=== PATIENT | female | born 1950 ===

== ENCOUNTER 2021-05-05 10:51 | Emergency (ER) | payer MEDICARE ==
[~2021-05-05] VITALS: Ht 175.3 cm; Wt 81.6 kg
--- NOTE | 2021-05-05 11:04 | NUR ---
Call placed to [facility] for per request.
[2021-05-05 11:38] LABS: HEMATOCRIT 49.3 % (31.2-41.9); MEAN CORPUSCULAR VOLUME 93.1 fL (75.5-95.3); PLATELET COUNT (AUTO) 165 K/uL (179-408)
[2021-05-05 11:46] LABS: CREATININE 0.6 mg/dL (0.6-1.3); POTASSIUM 3.5 mmol/L (3.5-5.1)
[2021-05-05 11:52] LABS: BILIRUBIN,DIRECT 0.2 mg/dL (0.0-0.2); BILIRUBIN,TOTAL 0.7 mg/dL (0.2-1.0); TOTAL PROTEIN, SERUM 6.3 g/dL (6.4-8.2)
[2021-05-05 11:54] LABS: *BILIRUBIN,URIN NEGATIVE (NEGATIVE); *CLARITY,URINE CLEAR (CLEAR); *COLOR,URINE YELLOW (YELLOW); *KETONES,URINE NEGATIVE (NEGATIVE); LEUKOCYTE ESTERASE ,URINE 1+ (NEGATIVE); NITRITE, URINE NEGATIVE (NEGATIVE); PH,URINE 5.5 (5.0-8.0); UGLUCOSE NEGATIVE (NEGATIVE)
[2021-05-05] MEDS ORDERED: ONDANSETRON 4 MG/2 ML VIAL IV PRN (12:00)
[2021-05-05] MEDS ORDERED: MAGNESIUM HYDROXIDE 30 ML LIQUID UDC PO PRN (12:00)
[2021-05-05] MEDS ORDERED: ACETAMINOPHEN 325 MG TABLET PO PRN (12:00)
[2021-05-05] MEDS ORDERED: IV D5 1/2 NS 1000 ML 1,000 ML IV PRN (12:00)
--- NOTE | 2021-05-05 12:00 | NUR ---
Patient returned from CT Scan.
[2021-05-05] MEDS ORDERED: IV NORMAL SALINE 500 ML BAG IV ONE ×2 (12:15→15:15)
[2021-05-05 12:19] LABS: *BLOOD, URINE TRACE (NEGATIVE)
[2021-05-05] MEDS ORDERED: APIX5TAB PO (12:24)
[2021-05-05] MEDS ORDERED: ACET-2154 PO (12:24)
[2021-05-05] MEDS ORDERED: MIRT-121 PO (12:24)
[2021-05-05] MEDS ORDERED: LEVE500T9 PO (12:24)
[2021-05-05 14:27] LABS: BACTERIA,URINE FEW /HPF (NONE SEEN); RBC,URINE 0-3 /HPF (0-3); SQUAMOUS EPITHELIAL CELL,UR FEW /HPF (NONE SEEN); URINE AMORPHOUS URATE MANY /HPF
--- NOTE | 2021-05-05 14:50 | NUR ---
Patient is resting comfortably in bed, no acute distress noted.
[2021-05-05] MEDS ORDERED: DEXAMETHASONE SOD PHOSPHATE 4 MG INJ IV ONE (15:00)
[2021-05-05] MEDS ORDERED: DEXAMETHASONE SOD PHOSPHATE 4 MG INJ ONE (15:14)
--- NOTE | 2021-05-05 15:21 | NUR ---
Noted that patient has thick secretions in her mouth. Patient was suctioned to ensure a patent airway.
[2021-05-05] MEDS ORDERED: levETIRAcetam IV 1,000 MG in IV DEXTROSE 5% 100 ML IV SCH (15:45)
--- NOTE | 2021-05-05 16:23 | NUR ---
Gilda calling from [facility]. Will fax requested clinicals to number [phone] call back number for the transfer center is [phone]
--- NOTE | 2021-05-05 16:57 | NUR ---
Patient is resting comfortably in bed, no acute distress noted.
[2021-05-05] MEDS ORDERED: levETIRAcetam 250 MG TABLET PO SCH (17:00)
[2021-05-05] MEDS ORDERED: DEXAMETHASONE SOD PHOSPHATE 4 MG INJ IV SCH (18:00)
--- NOTE | 2021-05-05 18:07 | NUR ---
Received telephone call from Gilda from [facility]. Pt will be going to room 4408 bed 1, call [phone] ext [phone] for report. 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
--- NOTE | 2021-05-05 19:08 | NUR ---
Report given to DAVID Rodríguez, admit MD barron at [facility]. [facility] CCT unit 408 at bedside, report given to DAVID.
--- NOTE | 2021-05-05 19:17 | NUR ---
Note los in EDM - 05/05/21 at 1920 by FRANCISCO Report given to DAVID Rodríguez, abdi barron at [facility]. [facility] CCT unit 408 at bedside, report given to DAVID.
--- NOTE | 2021-05-05 19:26 | NUR ---
Patient Transfers to outside Facility Physician: MD Sheppard Location: [facility].
== END 2021-05-05 19:30 | disposition short-term general hospital (02) ==
LOC: ER 10:51
DX: R41.82 Altered mental status, unspecified (principal); C71.1 Malignant neoplasm of frontal lobe; C78.7 Secondary malignant neoplasm of liver and intrahepatic bile duct; R53.1 Weakness; N39.0 Urinary tract infection, site not specified; K51.90 Ulcerative colitis, unspecified, without complications; R13.10 Dysphagia, unspecified; Z86.718 Personal history of other venous thrombosis and embolism; Z79.01 Long term (current) use of anticoagulants; Z20.822 Contact with and (suspected) exposure to COVID-19; I45.10 Unspecified right bundle-branch block; J98.11 Atelectasis
CPT/HCPCS: 36415; 70450; 71045; 80048; 80061; 80076; 81001; 82962; 83605; 84145; 84484; 85025; 85730; 87040 ×2; 87086; 87426; 93005; 96361; 96374; 96375; 99285; J1100; 70030-TC; C1758; J1953; J7040; J7060